=== PATIENT | female | born 1985 | race Two or more races ===

== ENCOUNTER 2020-12-21 05:38 | Day surgery (SDC) | payer OTHER ==
[~2020-12-21 05:38] MED LIST: SYNTHROID50 MCG
== END 2020-12-21 10:15 | disposition home or self-care (01) ==
LOC: AMB-ENDOS 05:38
PROVIDERS: ATTEND Surgery
DX: D13.1 Benign neoplasm of stomach (principal); K44.9 Diaphragmatic hernia without obstruction or gangrene

== ENCOUNTER 2021-08-27 10:01 | Emergency (ER) | payer OTHER ==
[~2021-08-27] VITALS: Ht 165.1 cm; Wt 123.4 kg
[2021-08-27] MEDS ORDERED: SYNTHROID150 MCG PO (10:11)
== END 2021-08-27 16:32 | disposition home or self-care (01) ==
LOC: ER 10:01
DX: K29.60 Other gastritis without bleeding (principal); R10.9 Unspecified abdominal pain

== ENCOUNTER 2025-09-24 11:04 | Emergency (ER) | payer OTHER ==
[~2025-09-24] VITALS: Ht 167.6 cm; Wt 125.2 kg
[~2025-09-24 11:04] MED LIST changes: +SYNTHROID150 MCG PO
[2025-09-24] MEDS ORDERED: RINGERS SOLUTION,LACTATED 1,000 ML IV ONE (13:15)
[2025-09-24 14:25] LABS: URINE APPEARANCE Cloudy; URINE BILIRRUBIN Negative (NEGATIVE); URINE BLOOD Large; URINE COLOR Yellow; URINE GLUCOSE Negative (NEGATIVE); URINE KETONE Negative (NEGATIVE); URINE LEUKOCYTE Trace; URINE NITRATE Negative; URINE PROTEIN Trace (NEGATIVE); URINE UROBILINOGEN 0.2 E.U./dl
[2025-09-24 14:31] LABS: URINE BACTERIA 1795.9 uL (0.0-1933); URINE EPITHELIAL CELLS 84.0 uL (0.0-38.8); URINE RBC 82.5 uL (0.0-20.8); URINE WBC 14.5 uL (0.0-23.2)
[2025-09-24 14:37] LABS: BASO % 0.9 % (0.1-1.2); EOS # 0.71 (0.04-0.54); EOS % 8.7 % (0.7-7.0); LYMPH # 2.57 (1.18-3.74); LYMPH % 31.5 % (19.3-53.1); MEAN PLATELET VOLUME 9.50 fl (9.4-12.4); MONO # 0.70 (0.24-0.82); MONO % 8.6 % (4.7-12.5); NEUT # 4.09 (1.56-6.13); NEUT % 50.1 % (34.0-71.1); RED CELL DISTRIBUTION WIDTH 12.9 % (11.6-14.4)
[2025-09-24 14:43] LABS: TYPE CELLS SQUAMOUS; URINE CAST 0.14 uL (0.0-1.40)
[2025-09-24 15:05] LABS: INR 1.01
[2025-09-24 15:16] LABS: ALT/SGPT 18.0 U/L (12-78); AST/SGOT 17.0 U/L (15-37); BILIRUBIN TOTAL 0.59 mg/dL (0.3-1.2); BUN CREA RATIO 9.0 (7.0-25.0); CREATININE SERUM 0.67 mg/dL (0.55-1.02); GFR 97.99; GLOBULINA 3.2 G/DL (2.4-3.5); GLUCOSE FASTING 79.0 mg/dL (65-100); OSMOLALITY SERUM 276.0 MOSM/KG (275-295)
== END 2025-09-24 18:22 | disposition home or self-care (01) ==
LOC: ER 11:04
PROVIDERS: Student in an Organized Health Care Education/Training Program
DX: O23.31 Infections of other parts of urinary tract in pregnancy, first trimester (principal); O20.8 Other hemorrhage in early pregnancy; E03.8 Other specified hypothyroidism; Z91.013 Allergy to seafood; N39.0 Urinary tract infection, site not specified; Z3A.08 8 weeks gestation of pregnancy